=== PATIENT | female | born 1945 | race African-American/Black ===

== ENCOUNTER 2018-03-18 14:17 | Emergency (ER) | payer MEDICARE ==
[~2018-03-18 14:17] MED LIST: ISOVUE-370 76%-LOCM 1 ML ONE; Iopamidol 370 76% 50 ML VIAL FS ONE
[2018-03-18 15:02] LABS: #Eosinphils 0.1 thou/uL (0.0-0.7); #Lymphocytes 0.9 thou/uL (1.20-3.40); #Monocytes 0.4 thou/uL (0.11-0.59); #Neutrophils 7.8 thou/uL (1.40-6.50); %Basophils 0.5 % (0.0-1.0); %Eosinophils 0.7 % (0.0-10.0); %Lymphocytes 9.4 % (21.0-51.0); %Monocytes 4.5 % (0.0-10.0); %Neutrophils 84.9 % (42.0-75.0); Hemoglobin 13.9 g/dL (12.0-16.0); Mean Corpuscular HGB CONC 32.7 g/dL (32.0-36.0); Mean Corpuscular Hemoglobin 29.5 pg (27.0-31.0); Mean Corpuscular Volume 90.1 fL (78.0-98.0); Mean Platelet Volume 7.6 fL (7.4-10.4); Platelet Count 219 thou/uL (130-400); RBC Distribution Width 12.1 % (11.5-14.5); Red Blood Cell (RBC) Count 4.71 mill/uL (4.20-5.40); White Blood Cell (WBC) Count 9.2 thou/uL (4.8-10.8)
[2018-03-18 15:21] LABS: ALT (SGPT) 12 U/L (8-55); AST (SGOT) 20 U/L (5-34); Albumin 4.3 g/dL (3.4-4.8); Alkaline Phosphatase 109 U/L (40-150); Anion Gap 15 mmol/L (10-20); BUN (Urea Nitrogen) 14 mg/dL (9.8-20.1); Bilirubin, Total 1.1 mg/dL (0.2-1.2); Calc. Creatinine Clearance 0 mL/min (70-130); Calcium 9.5 mg/dL (7.8-10.44); Carbon Dioxide 23 mmol/L (23-31); Chloride 106 mmol/L (98-107); Estimated GFR-MDRD 78; Globulin 3.6 g/dL (2.4-3.5); Glucose 92 mg/dL (80-115); Lipase 6 U/L (8-78); Potassium 4.4 mmol/L (3.5-5.1); Protein, Total 7.9 g/dL (6.0-8.3); Sodium 140 mmol/L (136-145)
[2018-03-18 16:01] LABS: Bilirubin Negative (Negative); Blood, Urine Negative (Negative); Clarity CLEAR (Clear); Glucose, Urine (Dipstick) Negative (Negative); Leukocyte Negative (Negative); Nitrite Negative (Negative); Protein, Urine (Dipstick) Negative (Neg-Trace)
--- NOTE | 2018-03-18 16:02 | RAD ---
SINGLE VIEW OF THE CHEST: 03/18/18 COMPARISON: None. HISTORY: Abdominal pain with headache, weakness, and chills; chest pain. FINDINGS: Single view of the chest shows a normal sized cardiomediastinal silhouette. There is no evidence of c onsolidation, mass, or pleural effusion. The bones are unremarkable. IMPRESSION: No evidence of acute cardiopulmonary disease. POS: [facility]
[2018-03-18] MEDS ORDERED: Ondansetron ODT 4 MG TAB ONE (16:21)
[2018-03-18 16:38] LABS: Troponin I Less than 0.010 ng/mL (< 0.028)
--- NOTE | 2018-03-18 18:19 | CT ---
CT ABDOMEN AND PELVIS WITH ORAL AND IV CONTRAST 03/18/18 HISTORY: Abdominal pain, nausea and vomiting, weakness and chills. FINDINGS: Mild dependent changes in the lung bases. The patient is post cholecystectomy with prominent biliary ducts likely due to reservoir effect. The liver, spleen, pancreas, adrenal glands and left kidney are unremarkable. There is a 4.7 cm exophytic cortical cyst arising from the medial aspect of the right mid kidney. No free air, free fluid or lymphadenopathy are seen. There are vascular calcifications wi thout evidence of aneurysmal dilatation of the abdominal aorta. There are degenerative changes in the spine. Uterus is present. The small bowel loops are not abnormally dilated. There is fecal material in the colon and rectum. A small hiatal hernia is present. IMPRESSION: 1. Small hiatal hernia. 2. Right renal cyst. 3. Constipation. POS: [facility]
== END 2018-03-18 20:05 | disposition home or self-care (01) ==
LOC: ERS 14:17
DX: K59.00 Constipation, unspecified (principal); I10 Essential (primary) hypertension
CPT/HCPCS: 71045; 74177; 80053; 81003; 82553; 83605; 83690; 84484; 85025; 93005; 96361; 96374; J2270; Q0162

== ENCOUNTER 2020-07-15 10:47 | Outpatient (CLI) | payer MEDICARE ==
--- NOTE | 2020-07-23 11:36 | MMO ---
Bilateral MAMMO Bilat Screen DDI+RAJ. CLINICAL HISTORY: Patient is 75 years old and is seen for screening. The patient has no family history of breast cancer. The patient has no personal history of cancer. The patient has a history of left needle biopsy - benign. VIEWS: The views performed were: bilateral craniocaudal with tomosynthesis and bilateral mediolateral oblique with tomosynthesis. FILMS COMPARED: The present examination has been compared to prior imaging studies performed at [facility] on 03/25/2016, 04/14/2016, 04/12/2017 and 02/07/2019. This study has been interpreted with the assistance of computer-aided detection. MAMMOGRAM FINDINGS: There are scattered fibroglandular densities. There is a focal asymmetry seen in the inner region of the left breast. In the right breast, there are no suspicious masses, calcifications or areas of architectural distortion. IMPRESSION: FOCAL ASYMMETRY IN THE LEFT BREAST REQUIRES ADDITIONAL EVALUATION. SPOT COMPRESSION IS RECOMMENDED. AN ULTRASOUND EXAM IS RECOMMENDED. ADDITIONAL IMAGING. THE RESULTS OF THIS EXAM WERE SENT TO THE PATIENT. ACR BI-RADS Category 0 - Incomplete: Need additional imaging evaluation. [facility] will notify the patient of the need for additional imaging services. MAMMOGRAPHY NOTE: 1. A negative mammogram report should not delay a biopsy if a dominant of clinically suspicious mass is present. 2. Approximately 10% to 15% of breast cancers are not detected by mammography. 3. Adenosis and dense breasts may obscure an underlying neoplasm. Reported by: KENNY VILLARREAL MD Electonically Signed: [id number]
== END 2020-07-15 10:48 | disposition home or self-care (01) ==
LOC: BICMAMMO 10:47
PROVIDERS: ATTEND Family Medicine
DX: Z12.31 Encounter for screening mammogram for malignant neoplasm of breast (principal); N64.89 Other specified disorders of breast
CPT/HCPCS: 77063; 77067

== ENCOUNTER 2020-07-30 13:10 | Outpatient (CLI) | payer MEDICARE ==
--- NOTE | 2020-07-30 14:23 | MMO ---
Left Breast MAMMO Unilat Diag DDI LT+RAJ. CLINICAL HISTORY: Patient is 75 years old and is seen for diagnostic exam. The patient has no family history of breast cancer. The patient has no personal history of cancer. The patient has a history of left needle biopsy - benign. VIEWS: The views performed were: left craniocaudal spot compression with tomosynthesis; left mediolateral oblique spot compression with tomosynthesis; and left mediolateral with tomosynthesis. FILMS COMPARED: The present examination has been compared to prior imaging studies performed at [facility] on 07/15/2020 and 07/30/2020, and at [facility] on 04/12/2017 and 02/07/2019. This study has been interpreted with the assistance of computer-aided detection. MAMMOGRAM FINDINGS: There are scattered fibroglandular densities. There is an equal density, irregular mass measuring 8 millimeters with spiculated margins seen in the central region of the left breast. A corresponding abnormality on ultrasound is not identified. IMPRESSION: MASS IN THE LEFT BREAST IS SUSPICIOUS. BREAST MRI IS RECOMMENDED TO ASSESS FOR THE POSSIBILITY OF MR DIRECTED BIOPSY. THE RESULTS OF THIS EXAM WERE SENT TO THE PATIENT. ACR BI-RADS Category 4 - Suspicious abnormality - biopsy should be considered MAMMOGRAPHY NOTE: 1. A negative mammogram report should not delay a biopsy if a dominant of clinically suspicious mass is present. 2. Approximately 10% to 15% of breast cancers are not detected by mammography. 3. Adenosis and dense breasts may obscure an underlying neoplasm. Reported by: NATI TARIQ MD Electonically Signed: [id number]
--- NOTE | 2020-07-30 14:27 | ULT ---
EXAM: US Breast Limited Lt PROVIDED CLINICAL HISTORY: Left breast mass COMPARISON: Diagnostic mammogram 07/30/2020 FINDINGS: Sonographic interrogation was performed of the left breast in the region of mammographic concern. A 5 mm circumscribed hypoechoic focus with oval shape and probable enhanced through transmission probably reflects a complex cyst and does not have the expected sonographic characteristics of the co ncerning mass seen by mammogram. A definite correlate for the mammogram abnormality is not evident. IMPRESSION: A definite correlate for the concerning mammographic finding is not evident. Breast MRI is recommende d for further evaluation to assess for the potential for MR directed biopsy. BI-RADS 4 -- suspicious abnormality, biopsy recommended
== END 2020-07-30 13:11 | disposition home or self-care (01) ==
LOC: BICMAMMO 13:10
PROVIDERS: ATTEND Family Medicine
DX: R92.2 Inconclusive mammogram (principal)
CPT/HCPCS: 76642; 77065; G0279

== ENCOUNTER 2021-02-06 10:27 | Outpatient (CLI) | payer MEDICARE | END 2021-02-06 10:28 | disposition home or self-care (01) | LOC: BICMRI 10:27 | PROVIDERS: ATTEND Specialist | DX: N63.24 Unspecified lump in the left breast, lower inner quadrant (principal) | CPT/HCPCS: A9577; C8908 ==